=== PATIENT | female | born 1970 | race African-American/Black ===

== ENCOUNTER 2022-04-12 18:26 | Observation (INO) ==
[2022-04-12] MEDS ORDERED: ONDANSETRON 4 MG/2 ML VIAL IV STA (19:23)
[2022-04-12] MEDS ORDERED: SODIUM CHLORIDE 0.9% 500 ML IV STA ×2 (19:23→20:19)
[2022-04-12 19:48] LABS: Basophils % 0.3 % (0.0-0.8); Hematocrit 30.6 VOL% (35.7-47.0); Hemoglobin 9.7 GM/DL (12.0-16.0); Immature Granulocytes % 0.2 %; Immature Granulocytes Absolute 0.01 #; Lymphocytes # 2.6 10*3/uL (1.4-4.0); Lymphocytes % 42.1 % (21.3-54.2); Mean Corpuscular HGB Conc 31.7 GM/DL (32-36); Monocytes # 0.4 10*3/uL (0.11-0.8); Monocytes % 5.6 % (1.7-12.7); Neutrophils % 51.8 % (38.7-73.9); Platelet Count 206 T/CUMM (130-400); Red Cell Distribution Width 14.5 % (9.3-17.3); White Blood Count 6.3 T/CUMM (4-12)
[2022-04-12 20:09] LABS: Alanine Aminotransferase 29 U/L (13-56); Albumin 3.3 G/DL (3.4-5.0); Alkaline Phosphatase 86 U/L (45-117); Amylase 69 U/L (25-115); Aspartate Amino Transferase 18 U/L (0-37); Bilirubin,Total < 0.39 MG/DL (0.20-1.00); Blood Urea Nitrogen 59 MG/DL (7-18); Calcium 9.7 MG/DL (8.5-10.1); Carbon Dioxide 22 MMOL/L (21-32); Chloride 109 MMOL/L (98-107); Glucose 189 MG/DL (74-106); Osmolality,Calculated 296.7 MOS/KG (273-304); Potassium 4.4 MMOL/L (3.5-5.1); Sodium 138 MMOL/L (136-145); Total Protein 7.7 G/DL (6.4-8.2)
[2022-04-12] MEDS ORDERED: GLUCAGON 1 MG VIAL IM PRN ×2 (21:26)
[2022-04-12] MEDS ORDERED: ACETAMINOPHEN 325 MG TABLET PO PRN (21:26)
[2022-04-12] MEDS ORDERED: ONDANSETRON 4 MG/2 ML VIAL IV PRN (21:26)
[2022-04-12] MEDS ORDERED: DEXTROSE 50% 25 GM/50 ML VIAL IV PRN (21:26)
[2022-04-12] MEDS ORDERED: MELATONIN 3 MG TABLET PO PRN (21:31)
[2022-04-12] MEDS ORDERED: DEXTROSE 10% 250 ML BAG IV PRN (21:39)
[2022-04-12] MEDS: SODIUM CHLORIDE 0.9% 1,000 ML IV SCH (21:55)
[2022-04-12] MEDS: ENOXAPARIN 30 MG/0.3 ML SYRINGE SUBCUT SCH (21:55)
[2022-04-13 00:14] LABS: Bacteria,Urine Occasional /HPF (Few); Hyaline Casts,Urine 7 /LPF (0-3); Mucus,Urine Occasional /LPF (Occasional); Squamous Epithelial Cell,Urine Occasional /HPF (0-10)
[2022-04-13 00:15] LABS: Bilirubin,Urine Negative (Negative); Blood, Urine Trace mg/dL (Negative); Glucose,Urine (UA) Negative (Negative); Ketones,Urine Negative (Negative); Nitrite,Urine Negative (Negative); Protein,Urine Negative (Negative); Urine Appearance Clear (Clear); Urine Color Yellow (Yellow); Urine Specific Gravity 1.015 (1.001-1.035); Urine Urobilinogen 0.2 eU/dL (<2.0)
[2022-04-13 04:15] LABS: Basophils % 0.2 % (0.0-0.8); Eosinophils % 0.2 % (0.00-10.9); Hemoglobin 9.4 GM/DL (12.0-16.0); Immature Granulocytes % 0.2 %; Immature Granulocytes Absolute 0.01 #; Lymphocytes % 45.6 % (21.3-54.2); Mean Corpuscular HGB Conc 31.3 GM/DL (32-36); Mean Corpuscular Volume 91.2 FL (87-102); Mean Platelet Volume 11.2 FL (9.6-12.0); Monocytes # 0.4 10*3/uL (0.11-0.8); Monocytes % 5.7 % (1.7-12.7); Neutrophils % 48.1 % (38.7-73.9); Platelet Count 210 T/CUMM (130-400); Red Blood Count 3.29 MC/CUMM (3.8-5.5); Red Cell Distribution Width 14.2 % (9.3-17.3); White Blood Count 6.5 T/CUMM (4-12)
[2022-04-13 04:38] LABS: Alanine Aminotransferase 28 U/L (13-56); Alkaline Phosphatase 83 U/L (45-117); Aspartate Amino Transferase 15 U/L (0-37); Bilirubin,Total < 0.39 MG/DL (0.20-1.00); Blood Urea Nitrogen 56 MG/DL (7-18); Calcium 9.1 MG/DL (8.5-10.1); Carbon Dioxide 21 MMOL/L (21-32); Chloride 114 MMOL/L (98-107); Glucose 163 MG/DL (74-106); Potassium 4.3 MMOL/L (3.5-5.1); Sodium 143 MMOL/L (136-145); Total Protein 7.3 G/DL (6.4-8.2)
[2022-04-13] MEDS: DEXAMETHASONE 4 MG/1 ML VIAL IV SCH (08:50)
[2022-04-13] MEDS: AZITHROMYCIN 250 MG TABLET PO SCH (08:51)
[2022-04-13] MEDS: CETIRIZINE 10 MG TABLET PO SCH (08:51)
[2022-04-13] MEDS: ASCORBIC ACID 500 MG TABLET PO SCH ×2 (08:51→21:13)
[2022-04-13] MEDS: FAMOTIDINE 20 MG TABLET PO SCH ×2 (08:51→21:13)
[2022-04-13] MEDS: CHOLECALCIFEROL 1,000 UNIT TABLET PO SCH (08:51)
[2022-04-13] MEDS: SODIUM CHLORIDE 0.9% 1,000 ML IV SCH ×4 (08:52→21:36)
[2022-04-13] MEDS: ZINC GLUCONATE 50 MG TABLET PO SCH (08:52)
[2022-04-13] MEDS: INSULIN REGULAR 100 UNIT/ML SUBCUT SCH ×4 (08:52→21:12)
[2022-04-13] MEDS ORDERED: MAGNESIUM SULF RIDER 2 GM/50 ML PREMIX IV ONE (15:13)
[2022-04-13] MEDS: METOPROLOL TARTRATE 25 MG TABLET PO SCH ×2 (15:34→21:13)
[2022-04-13] MEDS: ASPIRIN EC 81 MG TABLET PO SCH (16:56)
[2022-04-13] MEDS: ENOXAPARIN 30 MG/0.3 ML SYRINGE SUBCUT SCH (22:00)
[2022-04-14 05:14] LABS: Hematocrit 28.3 VOL% (35.7-47.0); Immature Granulocytes % 0.2 %; Immature Granulocytes Absolute 0.01 #; Lymphocytes # 1.4 10*3/uL (1.4-4.0); Lymphocytes % 32.4 % (21.3-54.2); Mean Corpuscular HGB Conc 31.8 GM/DL (32-36); Mean Corpuscular Volume 89.8 FL (87-102); Mean Platelet Volume 10.5 FL (9.6-12.0); Monocytes # 0.5 10*3/uL (0.11-0.8); Monocytes % 10.9 % (1.7-12.7); Neutrophils % 56.5 % (38.7-73.9); Platelet Count 192 T/CUMM (130-400); Red Blood Count 3.15 MC/CUMM (3.8-5.5); Red Cell Distribution Width 14.2 % (9.3-17.3); White Blood Count 4.2 T/CUMM (4-12)
[2022-04-14 05:31] LABS: Parathyroid Hormone Intact 69.9 PG/ML (18.4-80.1)
[2022-04-14 05:43] LABS: Phosphorous 2.1 MG/DL (2.5-4.9); Uric Acid 9.2 MG/DL (2.6-6.0)
[2022-04-14 05:53] LABS: Calcium 9.5 MG/DL (8.5-10.1); Osmolality,Calculated 300.7 MOS/KG (273-304); Potassium 4.9 MMOL/L (3.5-5.1)
[2022-04-14] MEDS: DEXAMETHASONE 4 MG/1 ML VIAL IV SCH (09:06)
[2022-04-14] MEDS: INSULIN REGULAR 100 UNIT/ML SUBCUT SCH ×2 (09:06→12:03)
[2022-04-14] MEDS: AZITHROMYCIN 250 MG TABLET PO SCH (09:07)
[2022-04-14] MEDS: FAMOTIDINE 20 MG TABLET PO SCH (09:07)
[2022-04-14] MEDS: CHOLECALCIFEROL 1,000 UNIT TABLET PO SCH (09:07)
[2022-04-14] MEDS: ASCORBIC ACID 500 MG TABLET PO SCH (09:07)
[2022-04-14] MEDS: CETIRIZINE 10 MG TABLET PO SCH (09:07)
[2022-04-14] MEDS: ZINC GLUCONATE 50 MG TABLET PO SCH (09:07)
[2022-04-14] MEDS: ASPIRIN EC 81 MG TABLET PO SCH (09:07)
[2022-04-14] MEDS: METOPROLOL TARTRATE 25 MG TABLET PO SCH (09:08)
[2022-04-14] MEDS: SODIUM CHLORIDE 0.9% 1,000 ML IV SCH (09:35)
[2022-04-14 12:44] VITALS: BP 117/73
== END 2022-04-14 12:45 | disposition home or self-care (01) ==
LOC: N.EDINP 18:26 → N.ED 18:26 → N.3E 22:39
PROVIDERS: ADMIT Internal Medicine; ATTEND Internal Medicine